=== PATIENT | female | born 1965 | race Caucasian/White ===

== ENCOUNTER 2017-04-03 06:54 | Inpatient (IN) | payer BC ==
[2017-04-01 11:12] VITALS: BMI 40.7
[2017-04-03] MEDS ORDERED: ROPIVACAINE HCL 0.5% 30ML VIAL ONE (07:57)
[2017-04-03] MEDS ORDERED: DEXAMETHASONE SOD PHOSPHATE/PF 10 MG/ML SDV ONE (07:58)
[2017-04-03] MEDS ORDERED: MIDAZOLAM HCL 2 MG/2 ML SINGLE DOSE VIAL ONE ×3 (08:19→08:21)
[2017-04-03] MEDS ORDERED: PROPOFOL 20 ML ONE (08:21)
[2017-04-03] MEDS ORDERED: ROCURONIUM BROMIDE 50 MG/5 ML VIAL ONE ×2 (08:21→10:16)
[2017-04-03] MEDS ORDERED: SUCCINYLCHOLINE CHLORIDE 200 MG/10 ML VIAL ONE (08:21)
[2017-04-03] MEDS ORDERED: DEXAMETHASONE SOD PHOSPHATE 4 MG/1 ML VIAL ONE (08:21)
[2017-04-03] MEDS ORDERED: LIDOCAINE HCL/PF 2% SDV 5ML VIAL ONE (08:21)
--- NOTE | 2017-04-03 09:22 | HP ---
Past Medical History - Primary Care Physician PCP:: Ahsan Ward - Admission Chief Complaint: pelvic pain,pelvic cystic mass. r/o hydrosalpinx pelvic History of Present Illness: 51 yo f with hx of chronic pelvic pain , sono showed 7 cm cystic pelvic mass , possible hydroslpinx, txed with antibiotic, felt better for few weeks, now has pain again.requesting hysterectomy, risks of procedure discussed with patient , ulternatives and no tx , conservative management discussed with patient History Source: Patient Limitations to Obtaining History: No Limitations - Past Medical History Cardiovascular: Yes: HTN - Past Surgical History Hx Myomectomy: No Hx Transabdominal Cerclage: No Additional Surgical History: exploratory laparotmy, for ectopic - Smoking History Smoking history: Former smoker Have you smoked in the past 12 months: No If you are a former smoker, when did you quit?: 1995 - Alcohol/Substance Use Hx Alcohol Use: No (OCCAS) - Social History History of Recent Travel: No Home Medications - Allergies Allergies/Adverse Reactions: Allergies Allergy/AdvReac Type Severity Reaction Status Date / Time No Known Drug Allergies Allergy Verified 04/01/17 11:07 - Home Medications Home Medications: Ambulatory Orders Olmesartan/Amlodipin/Hcthiazid [Tribenzor 40-10-12.5 mg Tablet] 1 tab PO DAILY 04/01/17 Review of Systems - Review of Systems Constitutional: reports: No Symptoms Eyes: reports: No Symptoms HENT: reports: No Symptoms Neck: reports: No Symptoms Cardiovascular: reports: No Symptoms Respiratory: reports: No Symptoms Gastrointestinal: reports: Abdominal Pain, Bloating Genitourinary: reports: Frequency Breasts: reports: No Symptoms Reported Musculoskeletal: reports: No Symptoms Integumentary: reports: No Symptoms Neurological: reports: No Symptoms Endocrine: reports: No Symptoms Hematology/Lymphatic: reports: No Symptoms Psychiatric: reports: No Symptoms Pain Intensity: 5 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 Vital Signs: Vital Signs Temperature 98.6 F 04/03/17 07:47 Pulse Rate 92 H 04/03/17 07:47 Respiratory Rate 20 04/03/17 07:47 Blood Pressure 136/85 04/03/17 07:47 O2 Sat by Pulse Oximetry (%) 97 04/03/17 07:47 Constitutional: Yes: Obese Eyes: Yes: WNL, Conjunctiva Clear, EOM Intact HENT: Yes: WNL, Atraumatic, Normocephalic Neck: Yes: WNL, Supple, Trachea Midline Cardiovascular: Yes: WNL, Regular Rate and Rhythm Respiratory: Yes: WNL, Regular, CTA Bilaterally Gastrointestinal: Yes: WNL ...Rectal Exam: Yes: WNL Renal/: Yes: WNL External Genitalia: Yes: Normal Vaginal Exam: Yes: Normal Cervix: Yes: Normal Uterus: Yes: Tender Breast(s): Yes: WNL Musculoskeletal: Yes: WNL Extremities: Yes: WNL Edema: No Integumentary: Yes: WNL Neurological: Yes: WNL, Alert, Oriented ...Motor Strength: WNL Psychiatric: Yes: WNL, Alert, Oriented Problem List - Problem (1) Pelvic pain Code(s): R10.2 - PELVIC AND PERINEAL PAIN (2) Hydrosalpinx Code(s): N70.11 - CHRONIC SALPINGITIS Assessment/Plan shane, bso, lysis of adhesions, rba discussed
[2017-04-03] MEDS ORDERED: ceFAZolin SODIUM 1 GM VIAL IVPB ONE ×2 (09:35→09:38)
[2017-04-03] MEDS ORDERED: PATIENT'S OWN MEDICATION (NON-FORMULARY) (Olmesartan/Amlodipin/Hcthiazid [Tribenzor 40-10- PO SCH (10:00)
[2017-04-03] MEDS ORDERED: ceFAZolin 2 GRAM PREMIX BAG IVPB ONE (10:00)
[2017-04-03] MEDS ORDERED: GLYCOPYRROLATE 0.2 MG/1 ML VIAL ONE ×3 (10:37→10:38)
[2017-04-03] MEDS ORDERED: NEOSTIGMINE METHYLSULFATE 0.5 MG/ML - 10 ML MDV ONE (10:38)
[2017-04-03] MEDS ORDERED: HYDROmorphone HCL/PF 1 MG/ML VIAL (FOR PYXIS CHARGING ONLY) ONE (10:44)
[2017-04-03] MEDS ORDERED: IBUPROFEN 600 MG TABLET (FP) PO PRN (10:56)
[2017-04-03] MEDS ORDERED: oxyCODONE HCL 5 MG TABLET PO PRN ×4 (10:56→12:31)
[2017-04-03] MEDS ORDERED: ONDANSETRON 4 MG/2 ML VIAL IVPB PRN (10:56)
[2017-04-03] MEDS ORDERED: ELECTROLYTE-148 SOLN 1,000 ML IV SCH (11:00)
--- NOTE | 2017-04-03 12:02 | OP ---
DATE OF OPERATION: 04/03/2017 PREOPERATIVE DIAGNOSIS: Cystic pelvic mass; rule out hydrocele; rule out ovarian cyst. POSTOPERATIVE DIAGNOSIS: Left ovarian cyst with torsion and hemorrhage and also left hydrosalpinx and pelvic adhesions. PROCEDURE: Lysis of pelvic adhesions, supracervical abdominal hysterectomy with right oophorectomy and left salpingo-oophorectomy. SURGEON: Ahsan Ward MD OFFICE CLIN ASST: Sid Baker MD ESTIMATED BLOOD LOSS: 150 mL. FINDINGS: Hemorrhagic cyst approximately 8 to 9-cm arising from the left ovary with torsion of the tube and ovary on the left side. The right tube was missing from the previous ectopic . There were omental bowel adhesions. DESCRIPTION OF PROCEDURE: The patient was taken to the operating room. Under adequate general anesthesia, the abdomen and perineum was prepped and draped. A Pfannenstiel abdominal incision was made. The abdominal wall was cut layer by layer until the peritoneum was exposed and incised. Upon entering the abdominal cavity, there were multiple omental adhesions to the anterior peritoneum, which was lysed with Metzenbaum scissors and hemostasis was established and bleeding points were tied. Then the upper abdomen was checked, was normal, and bowel was packed away. There were small bowel adhesions to the right ovary, and the right ovary was missing from the previous ectopic. On the left ovary and the tube was a dark, hemorrhagic cyst approximately 8-cm with torsion of the ovary and the tube on the left side with hemorrhage. There were no cul-de-sac adhesions. At this time, both round ligaments were identified, grasped with the bipolar cautery, and cauterized and cut. Then the anterior leaf of the broad ligament was opened and the bladder was pushed down. Then, the infundibular pelvic ligament was identified on the left side, a hole was made into the broad ligament, and then the infundibular pelvic ligament was grasped with the Gio clamp, cut, and the clamp replaced with 0 Vicryl ties twice. The same procedure was repeated for the right side. Then the bladder was further pushed down. The uterine artery was identified bilaterally, clamped, and cut, and the clamp replaced with 0 Vicryl suture bilaterally. At this time the bladder was further dissected and pushed down and then the paracervical area was identified, grasped with Gio clamp, cut, and the clamp replaced with 0 Vicryl suture bilaterally. At this time the specimen was removed from above the cervix. Then the cervix was grasped with 2 Gio clamps and then the cervix was sutured with interrupted sutures of 0 Vicryl. Hemostasis was established. The pelvic cavity irrigated several times and no active bleeding was seen. Both ureters were inspected and appeared to be normal. Then all the laparotomy count, sponge count, and instrument count were correct. The peritoneum was closed. The peritoneum and muscle were brought together with interrupted suture of 0 Vicryl. Then the fascia was closed with 0 Vicryl continuous suture. The subcutaneous fat closed with interrupted suture of 0 Vicryl and the skin was closed with cheryl. The patient tolerated the procedure well and left the operating room in good condition. Brooke [id number]
[2017-04-03] MEDS ORDERED: LACTATED RINGERS SOLUTION 1,000 ML IV SCH (15:00)
[2017-04-03] MEDS: HYDROCHLOROTHIAZIDE 12.5 MG CAPSULE (FP) PO SCH (15:14)
[2017-04-03] MEDS: amLODIPine BESYLATE 10 MG TABLET (FP) PO SCH (15:14)
[2017-04-03] MEDS: VALSARTAN 160 MG TABLET (UD) PO SCH (15:14)
[2017-04-03] MEDS: IBUPROFEN 800 MG/8 ML IJ IVPB PRN ×2 (15:43→21:55)
[2017-04-03] MEDS: ACETAMINOPHEN 325 MG TABLET (FP) PO SCH (17:31)
[2017-04-03] MEDS: CEFAZOLIN 2 GM/D5W 50 ML IVPB SCH (17:33)
[2017-04-04] MEDS: CEFAZOLIN 2 GM/D5W 50 ML IVPB SCH ×2 (01:32→09:36)
[2017-04-04] MEDS: ACETAMINOPHEN 325 MG TABLET (FP) PO SCH ×5 (01:35→21:07)
[2017-04-04 08:32] LABS: MCH 30.9 pg (25.7-33.7); MCHC 32.3 g/dl (32.0-36.0); MEAN CELL VOLUME 95.7 fl (80-96); MEAN PLT VOLUME 10.1 fl (7.5-11.1); PLATELET COUNT 181 K/MM3 (134-434); RDW 14.8 % (11.6-15.6); WHITE BLOOD COUNT 11.9 K/mm3 (4.0-10.0)
[2017-04-04 08:52] LABS: ANION GAP 8 (8-16); CALCIUM 9.1 mg/dL (8.5-10.1); CO2 30 mmol/L (21-32); CREATININE 0.6 mg/dL (0.55-1.02); GLUCOSE,RANDOM 99 mg/dL (74-106)
[2017-04-04] MEDS: VALSARTAN 160 MG TABLET (UD) PO SCH (09:40)
[2017-04-04] MEDS: HYDROCHLOROTHIAZIDE 12.5 MG CAPSULE (FP) PO SCH (09:40)
[2017-04-04] MEDS: amLODIPine BESYLATE 10 MG TABLET (FP) PO SCH (09:40)
[2017-04-04] MEDS: ENOXAPARIN NA (PORCINE) 40 MG/0.4 ML DISP.SYRIN SQ SCH (09:47)
[2017-04-04] MEDS: IBUPROFEN 800 MG/8 ML IJ IVPB PRN (10:32)
--- NOTE | 2017-04-04 18:10 | PN ---
Progress Note (short form) - Note Progress Note: pod 1 , s/p JOSE, doing well, ambulating , passing gas CBC, BMP 04/04/17 07:35 04/04/17 07:35 Last Vital Signs Temp Pulse Resp BP Pulse Ox 98.2 F 82 18 102/58 96 04/04/17 14:00 04/04/17 14:00 04/04/17 14:00 04/04/17 14:00 04/03/17 21:00 abdomen soft, no distension, no cva , no rebound , incision dry, clean no calf tendernes , no vaginal bleeding plan ambulate, DVT prophylaxis plan for d/c home in am Problem List - Problems (1) Pelvic pain Code(s): R10.2 - PELVIC AND PERINEAL PAIN (2) Hydrosalpinx Code(s): N70.11 - CHRONIC SALPINGITIS
[2017-04-05] MEDS: ACETAMINOPHEN 325 MG TABLET (FP) PO SCH ×2 (01:20→06:29)
--- NOTE | 2017-04-05 08:26 | PN ---
Progress Note (short form) - Note Progress Note: pod 2 doing well, passing gas , voids ok CBC, BMP 04/04/17 07:35 04/04/17 07:35 Last Vital Signs Temp Pulse Resp BP Pulse Ox 98.2 F 70 20 105/72 96 04/04/17 22:00 04/04/17 22:00 04/04/17 22:00 04/04/17 22:00 04/03/17 21:00 abdomen soft, no distension, no cva incision dry, clean no calf tenderness no vaginal bleeding plan d/c home, rto 2 weeks, instruction given Problem List - Problems (1) Pelvic pain Code(s): R10.2 - PELVIC AND PERINEAL PAIN (2) Hydrosalpinx Code(s): N70.11 - CHRONIC SALPINGITIS
--- NOTE | 2017-04-05 08:28 | DS ---
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: Vital Signs Temperature 98.2 F 04/04/17 22:00 Pulse Rate 70 04/04/17 22:00 Respiratory Rate 20 04/04/17 22:00 Blood Pressure 105/72 04/04/17 22:00 O2 Sat by Pulse Oximetry (%) 96 04/03/17 21:00 Constitutional: Yes: Well Nourished, No Distress, Calm Eyes: Yes: WNL, Conjunctiva Clear, EOM Intact HENT: Yes: WNL, Atraumatic, Normocephalic Neck: Yes: WNL, Supple, Trachea Midline Cardiovascular: Yes: WNL, Regular Rate and Rhythm Respiratory: Yes: WNL, Regular, CTA Bilaterally Gastrointestinal: Yes: WNL ...Rectal Exam: Yes: WNL Renal/: Yes: WNL Vaginal Exam: Yes: Normal Breast(s): Yes: WNL Musculoskeletal: Yes: WNL Extremities: Yes: WNL Edema: No Integumentary: Yes: WNL Wound/Incision: Yes: Clean/Dry, Well Approximated, Sutures Intact Neurological: Yes: WNL, Alert, Oriented ...Motor Strength: WNL Psychiatric: Yes: WNL, Alert, Oriented Labs: CBC, BMP 04/04/17 07:35 04/04/17 07:35 Discharge Summary Reason For Visit: HYDROSALPINX AND PELVIC PAIN Current Active Problems Hydrosalpinx (Acute) Pelvic pain (Acute) Procedures: Principal: supracervical abdominal hysterectomy, BSO Condition: Good - Instructions Diet, Activity, Other Instructions: regular diet, follow up office 2 weeks, if pain, fever, vaginal bleeding call Referrals: Ahsan Ward MD [Staff Physician] - Disposition: HOME - Home Medications Comprehensive Discharge Medication List: Ambulatory Orders Olmesartan/Amlodipin/Hcthiazid [Tribenzor 40-10-12.5 mg Tablet] 1 tab PO DAILY 04/01/17 Ibuprofen [Motrin -] 600 mg PO QID #28 tablet 04/04/17
[2017-04-05 10:03] VITALS: BP 131/77; PULSE 67; TEMP 98
[2017-04-05] MEDS: ENOXAPARIN NA (PORCINE) 40 MG/0.4 ML DISP.SYRIN SQ SCH (10:42)
[2017-04-05] MEDS: HYDROCHLOROTHIAZIDE 12.5 MG CAPSULE (FP) PO SCH (10:43)
[2017-04-05] MEDS: amLODIPine BESYLATE 10 MG TABLET (FP) PO SCH (10:44)
[2017-04-05] MEDS: VALSARTAN 160 MG TABLET (UD) PO SCH (10:44)
--- NOTE | 2017-04-10 16:46 | PATH ---
Surgical Pathology Report Patient Name: TIERNEY CAMPOS [facility]. Rec. 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 Specimen(s) Received UTERUS, BILATERAL FALLOPIAN TUBES, BILATERAL OVARIES, AND LEFT OVARIAN CYST Clinical History Hydrosalpinx and pelvic pain Final Diagnosis UTERUS, BILATERAL FALLOPIAN TUBES, BILATERAL OVARIES, AND LEFT OVARIAN CYST, SUPRACERVICAL HYSTERECTOMY: LEFT OVARY WITH SEROUS CYSTADENOMA, 10 CM IN GREATEST DIMENSION. 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 WEAKLY PROLIFERATIVE ENDOMETRIUM. MYOMETRIUM WITH FOCAL ADENOMYOSIS. ENDOCERVIX WITHOUT SIGNIFICANT PATHOLOGIC FINDINGS. RIGHT OVARY WITH HEMORRHAGIC CORPUS LUTEUM CYST. BILATERAL FALLOPIAN TUBES WITH FOCAL SURFACE ADHESIONS. Electronically Signed Radha Merritt M.D. Gross Description Received in formalin labeled "uterus, cervix, bilateral fallopian tubes, bilateral ovaries and left ovarian cyst," is a 113 g supracervically amputated uterus with bilateral attached fallopian tubes and ovaries and a left ovarian cyst. The specimen measures 6.2 cm from superior to inferior, 6.0 cm from left to right and 5.5 cm from anterior to posterior. The serosa is johnson estrada with focal johnson excrescences. The endometrial cavity measures 5 cm in length and 2.6 cm from cornu to cornu. The anterior endometrium displays a 2.8 cm in greatest dimension bulging submucosal nodule. The endometrium is johnson-pink and averages 0.1 cm in thickness. The myometrium displays a 1.2 cm greatest dimension intramural nodule. The cut surface of the submucosal and intramural nodules is johnson, firm to rubbery and displays whorled architecture. No areas of hemorrhage or necrosis are identified. The remaining myometrium is johnson-pink and averages 2.6 cm in thickness. The right fallopian tube is johnson-carbone and convoluted with tubal ovarian adhesions. No definite fimbria are identified. Sectioning reveals a dilated lumen. The attached right ovary measures 2.5 x 2.4 x 1.5 cm. The outer surface is johnson-estrada and smooth. Sectioning reveals a 1.0 cm in greatest dimension hemorrhagic corpus luteum. The remaining ovarian parenchyma is johnson and unremarkable. The left fallopian tube measures 6.5 cm in length and is focally dilated with tubal ovarian adhesions. There no fimbria identified. Sectioning reveals a focally dilated lumen. The fallopian tube displays an attached 3.5 x 2.0 x 1.4 cm ovary as well as an attached 10.0 x 8.0 x 6.5 cm ovarian cyst. The cyst is attached to both the fallopian tube and ovary but does not adhere to the uterus. Sectioning of the ovary reveals unremarkable ovarian parenchyma. The outer surface of the cyst is johnson carbone with focal excrescences. The cyst contains johnson serous fluid. The inner lining displays focal small excrescences. The cyst wall averages less than 0.1 cm in thickness. Bessemer Converter Blower sections are submitted in 24 cassettes as follows: 1-cervical stump margin of resection; 2-anterior endomyometrium; 7-2-evczoguef endomyometrium; 4-4-yaqzujnejk nodule; 7-intramural nodule; 8-serosal strips with excrescences; 9-right fallopian tube possible fimbria; 10-cross sections of right fallopian tube; 11-right ovary; 12-proximal left fallopian tube; 36-93-jkpkwf left fallopian tube; 15-19-left ovary with attached cyst; 20-22-cyst with outer surface excrescences; 23-24-cyst with inner lining excrescences. 04/04/201704/04/2017
== END 2017-04-05 11:40 | disposition home or self-care (01) | DRG 743 ==
LOC: JSAMEDAYSX 06:54 → EDSTATUS 09:00 → J3W 12:52
PROVIDERS: ADMIT Obstetrics & Gynecology; ATTEND Obstetrics & Gynecology
PROC: 0UT20ZZ Resection of Bilateral Ovaries, Open Approach (ICD-10-PCS; 2017-04-03)
PROC: 0UT70ZZ Resection of Bilateral Fallopian Tubes, Open Approach (ICD-10-PCS; 2017-04-03)
PROC: 0UT90ZL Resection of Uterus, Supracervical, Open Approach (ICD-10-PCS; principal; 2017-04-03 09:00)
DX: N70.11 Chronic salpingitis (principal); N83.202 Unspecified ovarian cyst, left side; I10 Essential (primary) hypertension; Z87.891 Personal history of nicotine dependence; Z90.79 Acquired absence of other genital organ(s)
CPT/HCPCS: 36415; 71020-TC; 80048; 85027; 86850; 86900; 86901; 88309-TC; 94010; 94760

== ENCOUNTER 2018-03-19 07:06 | Day surgery (SDC) | payer BC, OTHER ==
[2018-03-18 12:07] VITALS: BMI 41.5
[2018-03-19] MEDS ORDERED: ROPIVACAINE HCL 0.5% 30ML VIAL ONE (09:05)
[2018-03-19] MEDS ORDERED: DEXAMETHASONE SOD PHOSPHATE/PF 10 MG/ML SDV ONE (09:05)
[2018-03-19] MEDS ORDERED: MIDAZOLAM HCL 2 MG/2 ML SINGLE DOSE VIAL ONE ×2 (09:11→09:12)
[2018-03-19] MEDS ORDERED: DEXAMETHASONE SOD PHOSPHATE 4 MG/1 ML VIAL ONE (09:46)
[2018-03-19] MEDS ORDERED: LIDOCAINE HCL/PF 2% SDV 5ML VIAL ONE (09:46)
[2018-03-19] MEDS ORDERED: PROPOFOL 20 ML ONE ×2 (09:47→10:08)
[2018-03-19] MEDS ORDERED: SUCCINYLCHOLINE CHLORIDE 200 MG/10 ML VIAL ONE (09:47)
--- NOTE | 2018-03-19 09:50 | HP ---
Satellite H - Chief Complaint Chief Complaint: right shoulder pain - Past Medical History Allergies/Adverse Reactions: Allergies Allergy/AdvReac Type Severity Reaction Status Date / Time No Known Drug Allergies Allergy Verified 03/19/18 07:41 Cardiovascular: Yes: HTN ...LMP Comment: hysterectomy - Current Medications Current Medications: Home Medications Medication Instructions Recorded Olmesartan/Amlodipin/Hcthiazid 1 each PO DAILY 03/18/18 [Tribenzor 40-10-25 mg Tablet] Oxycodone HCl/Acetaminophen 1 - 2 tab PO Q6H #30 tab MDD 6 03/19/18 [Percocet 5-325 mg Tablet] Satellite Physical Exam - Physical Examination Vital Signs: Vital Signs Period Temp Pulse Resp BP Sys/Schrader Pulse Ox Last 24 Hr 98.8 F-98.8 F 90-90 20-20 149-149/87-87 97 General Appearance: Well Nourished, Well Developed, Alert & Oriented x3 ENT: Clear Lung: Normal air movement Heart: Regular rate & rhythm Extremities: Other (right shoulder- + ttp, decr rom, + empty can, + neer, + mckeon, nvi MRI + rct) Neurological: Intact, Alert, Oriented Satellite Impression/Plan - Impression/Plan Impression: right shoulder rct Operative Procedure: right shoulder arthroscopy with MARIKA ROMO Date to be Performed: 03/19/18
[2018-03-19] MEDS ORDERED: ceFAZolin SODIUM 1 GM VIAL IVPB ONE (10:20)
--- NOTE | 2018-03-19 10:55 | OP ---
Operative Note - Note: Operative Date: 03/19/18 ([facility]) Pre-Operative Diagnosis: right shoulder rct Operation: right shoulder arthroscopy with RCR, SAD Implants: 1 swivelock Post-Operative Diagnosis: Same as Pre-op Surgeon: Elio Reeves Cell Pourer: Jd Grullon Anesthesiologist/ASSEMBLER WIRE GROUP: Geo Soto Anesthesia: General, Local Specimens Removed: shavings Estimated Blood Loss (mls): 5 Operative Report Dictated: Yes
[2018-03-19] MEDS ORDERED: ONDANSETRON 4 MG/2 ML VIAL IVPUSH PRN (11:11)
[2018-03-19] MEDS ORDERED: PROMETHAZINE HCL 25 MG/1 ML VIAL IVPB PRN (11:11)
[2018-03-19] MEDS ORDERED: oxyCODONE HCL 5 MG TABLET PO PRN (11:11)
[2018-03-19] MEDS ORDERED: LACTATED RINGERS SOLUTION 1,000 ML IV SCH (11:15)
[2018-03-19] MEDS ORDERED: SEVOFLURANE 250 ML BTL ONE (11:26)
[2018-03-19] MEDS ORDERED: DESFLURANE GAS 240 ML BOTTLE IH ONE (11:26)
--- NOTE | 2018-03-19 12:49 | OP ---
DATE OF OPERATION: 03/19/2018 PREOPERATIVE DIAGNOSIS: Left rotator cuff tear. POSTOPERATIVE DIAGNOSIS: Left rotator cuff tear. PROCEDURE: Left rotator cuff repair, arthroscopic and subacromial decompression. SURGICAL ATTENDING: Elio Reeves MD STAVE INSPECTOR: DAIJA Mabry ANESTHESIA: Regional and general. CLOSURE: SutureTape and SwiveLoc anchor for rotator cuff, 3-0 nylon for portals. ESTIMATED BLOOD LOSS: Negligible. COMPLICATIONS: None. CONDITION: To the recovery room in stable condition. DESCRIPTION OF PROCEDURE: The patient was taken to the operating room on March 19, 2018. A regional and general anesthesia was administered by the anesthesiologist. IV Kefzol was administered prophylactically prior to the case. The patient was placed in the beach chair position with all prominences well padded. The left shoulder area was prepped and draped in the usual sterile fashion. First, a diagnostic arthroscopy of the glenohumeral joint was performed. The posterior portal was made 2 fingerbreadths below the acromion with a 15 blade followed by a blunt trocar. Circumferential exam of the glenohumeral joint revealed the following: Intact glenoid and humeral head articular cartilage, intact labrum circumferentially, intact biceps and biceps anchor. No loose bodies in the axillary pouch. Subscapularis was okay to its insertion. Subscapularis had a small crescent tear seen superiorly. The rest of the rotator cuff was found to be intact. The fluid was drained from the glenohumeral joint, and the trocar was removed. The posterior trocar was redirected in the subacromial space. An accessory lateral portal was made with a 15 blade followed by a blunt trocar. Large amount of subacromial bursa was encountered. This was debrided using the ArthroCare device. The coracoid acromial ligament was identified and detached. The anterior acromion and debrided and was detached and was further debrided. The undersurface of the acromion was shaved up to the appropriate level gaining sufficient height for the rotator cuff. All loose fragments of bone were debrided. The shaver was used to remove all soft tissue from the rotator cuff exposing the crescent tear of the rotator cuff. The bed was debrided. Fibrous tissue and bone were burred slightly to encourage bleeding bone. The Scorpio device was used to pass SutureTape suture in a horizontal mattress formation anteriorly and posterior. The rotator cuff was very mobile and was able to be reduced to the greater tuberosity. The lens of the sutures was then passed through the eyelet hole of the SwiveLoc and was malleted more laterally in the greater trochanter, and the lens were cut flush with the bone. Probing of the rotator cuff revealed excellent reduction of the rotator cuff to the greater tuberosity. Range of motion revealed good clearance of the subacromial space with no undue tension on the repair. The shoulder was irrigated and suctioned of all of its fluid. The portals were closed with 3-0 nylon. A sterile pressure dressing was applied with Aquacel as well as a shoulder immobilizer. The patient was awakened from anesthesia and transferred to recovery room in stable condition. No complications. Estimated blood loss negligible. Brooke HARVEY/[id number]
[2018-03-19 15:34] VITALS: TEMP 98
[2018-03-19 15:49] VITALS: BP 128/84; PULSE 86
--- NOTE | 2018-03-20 16:49 | PATH ---
Surgical Pathology Report Patient Name: TIERNEY CAMPOS [facility]. Rec. #: [id number] /Age/Gender: 1965 (Age: 52) / F Account: [id number] Location: [facility] SURGICAL Taken: 03/19/2018 Received: 03/19/2018 Reported: 03/20/2018 Physicians: Elio Reeves M.D. Specimen(s) Received RIGHT SHOULDER SHAVINGS Clinical History Rotator cuff tear Final Diagnosis SHOULDER SHAVINGS, RIGHT, ARTHROSCOPY AND ROTATOR CUFF REPAIR: FRAGMENTS OF BENIGN CARTILAGE, DENSE FIBROCONNECTIVE TISSUE, ADIPOSE TISSUE, SYNOVIUM, AND SKELETAL MUSCLE. Electronically Signed Radha Merritt M.D. Gross Description Received in formalin, labeled "right shoulder shavings," is a 3 x 3 x 1 cm. aggregate of johnson-yellow fibrocartilaginous soft tissue fragments. A district representative portion is submitted in one cassette. MLArceliaZ/03/19/2018 [email or web address]/03/19/2018
== END 2018-03-19 14:00 | disposition home or self-care (01) ==
LOC: JASU-SURG 07:06
PROVIDERS: ATTEND Orthopaedic Surgery
PROC: 0RNK4ZZ Release Left Shoulder Joint, Percutaneous Endoscopic Approach (ICD-10-PCS; principal; 2018-03-19 09:30)
PROC: 0LQ24ZZ Repair Left Shoulder Tendon, Percutaneous Endoscopic Approach (ICD-10-PCS; 2018-03-19 09:30)
DX: M75.102 Unspecified rotator cuff tear or rupture of left shoulder, not specified as traumatic (principal)
CPT/HCPCS: 88304-TC; 94760